=== PATIENT | male | born 1945 | race Caucasian/White ===

== ENCOUNTER 2019-06-15 12:28 | Emergency (ER) | payer OTHER, MEDICARE ==
[~2019-06-15] VITALS: Ht 172.7 cm; Wt 68.1 kg
[~2019-06-15 12:28] MED LIST: GLIP10TA10 PO; LISI10TA5 PO; LOSA25TA26 PO; METF-415 PO; PRAV20TA57 PO; TAMS-11 PO
[2019-06-15] MEDS ORDERED: SODIUM CHLORIDE 0.9% 1,000 ML IV ONE (13:20)
[2019-06-15 14:54] LABS: CHLORIDE 100 mEq/L (98-107)
[2019-06-15 15:04] LABS: BASOPHILS % 0.8 % (0.0-2.0); EOSINOPHILS % 1.7 % (0.0-5.0); HEMATOCRIT. 33.5 % (42.0-52.0); HEMOGLOBIN. 10.3 g/dL (14.0-18.0); LYMPHOCYTES % 15.2 % (20.0-50.0); MEAN CORPUSCULAR HEMOGLOBIN 22.2 pg (28.0-32.0); MEAN CORPUSCULAR VOLUME 72.3 fL (80.0-94.0); MONOCYTES % 7.7 % (2.0-8.0); NEUTROPHILS % 74.6 % (40.0-76.0); PLATELET 222 x1000/uL (130-400); RED BLOOD CELL COUNT 4.63 mill/uL (4.7-6.1); RED CELL DISTRIBUTION WIDTH 18.3 % (11.6-14.6)
[2019-06-15 16:23] VITALS: BP 109/62
== END 2019-06-15 16:24 | disposition home or self-care (01) ==
LOC: ER 12:28
DX: R55 Syncope and collapse (principal); R42 Dizziness and giddiness; R53.1 Weakness; E86.0 Dehydration; D64.9 Anemia, unspecified; E11.9 Type 2 diabetes mellitus without complications; E78.00 Pure hypercholesterolemia, unspecified; I10 Essential (primary) hypertension; Z90.49 Acquired absence of other specified parts of digestive tract; Z98.890 Other specified postprocedural states; Z79.899 Other long term (current) drug therapy; Z79.84 Long term (current) use of oral hypoglycemic drugs; Z88.5 Allergy status to narcotic agent; Z88.1 Allergy status to other antibiotic agents; Z88.6 Allergy status to analgesic agent
CPT/HCPCS: 36415; 71045; 80053; 83880; 84484; 85025; 93005; 96360; 99284; J7030